=== PATIENT | male | born 1980 | race American Indian/Alaskan Native ===

== ENCOUNTER 2021-04-21 08:08 | Emergency (ER) | payer SELFPAY ==
--- NOTE | 2021-04-21 08:41 | Emergency Department Report ---
ED Abdominal Pain HPI - General Chief Complaint: Abdominal Pain Stated Complaint: CONSTIPATION, DEHYDRATION Time Seen by Provider: 04/21/21 08:21 Source: patient Mode of arrival: Ambulatory Limitations: No Limitations - History of Present Illness Initial Comments: 40 year old male presents to ED with c/o left sided abdominal pain and constipation. Patient states his symptoms started 3 days ago. He states he is not usually constipated. He typically has 1-2 BM per day. He states he took 1/2 bottle of mag citrate yesterday and also tried castor oil but only had very small amt of stool yesterday. He states that the last time he had a good bowel movement was 3 days ago. He states that with straining and a hard stool it has flared up his hemorrhoid and he did see a very small amount of bright red blood on the tissue when he wiped. He currently denies any rectal pain or swelling. He denies any associated nausea or vomiting or UTI symptoms. He denies any abdominal surgeries in the past. He denies any associated chest pain or shortness of breath. He denies any fever or chills. He states he use to drink 2-3 beers per day but he stopped drinking about 1 mth ago. He denies any other significant pmhx. MD Complaint: abdominal pain -: days(s) (3) - Related Data Previous Rx's Medication Instructions Recorded Last Taken Type HYDROcodone/APAP 5-325 [[place] 1 each PO Q6HR PRN #12 tablet 04/21/21 Unknown Rx 5/325] metFORMIN [Glucophage] 500 mg PO BID #60 tablet 04/21/21 Unknown Rx Allergies Allergy/AdvReac Type Severity Reaction Status Date / Time Sulfa (Sulfonamide Allergy Swelling Verified 04/21/21 09:16 Antibiotics) ED Review of Systems ROS: Stated complaint: CONSTIPATION, DEHYDRATION Other details as noted in HPI Comment: All other systems reviewed and negative Constitutional: denies: chills, fever Eyes: denies: eye pain, eye discharge, vision change ENT: denies: ear pain, throat pain Respiratory: denies: cough, shortness of breath, SOB with exertion, SOB at rest, wheezing Cardiovascular: denies: chest pain, palpitations, dyspnea on exertion, edema, syncope, paroxysmal nocturnal dyspnea Gastrointestinal: abdominal pain, constipation, hematochezia Genitourinary: denies: urgency, dysuria, frequency, hematuria, discharge, testicular pain, testicular mass Musculoskeletal: denies: back pain, joint swelling, arthralgia Skin: denies: rash, lesions, change in color, change in hair/nails, pruritus Neurological: denies: headache, weakness, numbness, paresthesias, confusion, abnormal gait, vertigo Psychiatric: denies: anxiety, depression, auditory hallucinations, visual hallucinations, homicidal thoughts, suicidal thoughts Hematological/Lymphatic: denies: easy bleeding, easy bruising, swollen glands ED Past Medical Hx - Past Medical History Previous Medical History?: No - Surgical History Past Surgical History?: No - Medications Home Medications: Home Medications Medication Instructions Recorded Confirmed Last Taken Type HYDROcodone/APAP 5-325 [[place] 1 each PO Q6HR PRN #12 tablet 04/21/21 Unknown Rx 5/325] metFORMIN [Glucophage] 500 mg PO BID #60 tablet 04/21/21 Unknown Rx ED Physical Exam - General Limitations: No Limitations General appearance: alert, in no apparent distress - Head Head exam: Present: atraumatic, normocephalic, normal inspection - Eye Eye exam: Present: normal appearance, PERRL, EOMI Pupils: Present: normal accommodation - ENT ENT exam: Present: normal exam, mucous membranes dry - Neck Neck exam: Present: normal inspection, full ROM - Respiratory Respiratory exam: Present: normal lung sounds bilaterally. Absent: respiratory distress, wheezes, rales - Cardiovascular Cardiovascular Exam: Present: regular rate, normal rhythm, normal heart sounds - GI/Abdominal GI/Abdominal exam: Present: soft, tenderness (Mild ttp LUQ without guarding or rebound.). Absent: distended, guarding, rebound, rigid - Neurological Exam Neurological exam: Present: alert, oriented X3, CN II-XII intact, normal gait - Psychiatric Psychiatric exam: Present: normal affect, normal mood - Skin Skin exam: Present: intact ED Course Vital Signs 04/21/21 04/21/21 08:13 12:45 Temperature 98.6 F 97.9 F Pulse Rate 111 H 87 Respiratory 18 18 Rate Blood Pressure 154/88 Blood Pressure 121/73 [Left] O2 Sat by Pulse 96 97 Oximetry ED Medical Decision Making - Lab Data Result diagrams: 04/21/21 09:08 04/21/21 09:08 - Radiology Data Radiology results: report reviewed Patient: CANDICE MOODY MR#: [id number] : 1980 Acct:[id number] Age/Sex: 40 / M ADM Date: 04/21/21 Loc: ED Attending Dr: Ordering Physician: CESIA ABRAHAM Date of Service: 04/21/21 Procedure(s): CT abdomen pelvis w con Accession Number(s): [id number] cc: CESIA ABRAHAM CT ABDOMEN AND PELVIS WITH CONTRAST INDICATION / CLINICAL INFORMATION: Left sided abd pain/constipation OMNI 300 80ML . TECHNIQUE: Axial CT images were obtained through the abdomen and pelvis after 80 cc IV contrast. Sagittal and coronal reformatted images. All CT scans at this location are performed using CT dose reduction for ALARA by means of automated exposure control. COMPARISON: None available. FINDINGS: LOWER CHEST: No significant abnormality. LIVER: Mild hepatic steatosis. No enlargement or focal lesion. GALLBLADDER: No significant abnormality. BILE DUCTS: No significant abnormality. PANCREAS: There is a small amount of unorganized fluid near the pancreatic tail and left anterior pararenal space. This probably represents pancreatitis. The pancreatic parenchyma is unremarkable on CT. No mass, pseudocyst or necrosis is identified. SPLEEN: No significant abnormality. ADRENALS: No significant abnormality. RIGHT KIDNEY and URETER: No significant abnormality. LEFT KIDNEY and URETER: No significant abnormality. STOMACH and SMALL BOWEL: No significant abnormality. COLON: No significant abnormality. APPENDIX: No significant abnormality. PERITONEUM: No free fluid. No free air. No fluid collection. LYMPH NODES: No significant adenopathy. AORTA and ARTERIES: No significant abnormality. IVC and VEINS: No significant abnormality. URINARY BLADDER: No significant abnormality. REPRODUCTIVE ORGANS: No significant abnormality. ADDITIONAL FINDINGS: None. SKELETAL SYSTEM: Mild degenerative disc disease at L4-5. IMPRESSION: Findings suggestive of acute interstitial pancreatitis as described. Mild hepatic steatosis. Signer Name: Samy Angeles Jr, MD Signed: 04/21/2021 11:40 AM Workstation Name: [id number] Transcribed By: TTR Dictated By: SAMY ANGELES JR, MD Electronically Authenticated By: SAMY ANGELES JR, MD Signed Date/Time: 04/21/21 1140 DD/ 1136 TD/TT: - Medical Decision Making 1300: Labs/imaging reviewed -- Work-up today shows that patient new onset diabetic with an initial blood glucose of 635. No evidence of DKA. His blood sugar decreased to 298 after 3 L of IV fluid and 50 L of IV insulin. CT abdomen pelvis shows interstitial pancreatitis but lipase and LFTs were normal. Patient also reports history of daily alcohol use with 2-3 beers per day but he states that he stopped drinking about a month ago. He denies any past history of pancreatitis. Pancreatic changes on CT scan could be chronic. Discussed case with Dr Short -recommend that patient can be discharged as long as his pain is under control. Patient resting comfortably in the room, playing on his phone. He denies any pain currently after IV morphine. Repeat abdominal exam shows a soft nontender abdomen. He is not toxic or ill-appearing. He is neurologically intact. Given patient is pain-free with a repeat benign abdominal exam, and stable repeat vital signs, he will discharged home. Discussed lab results and CT results with patient. He understands his diagnosis of new onset diabetes and that he will need to start Metformin and take it daily until he follows up with the primary care doctor which he needs to do this week. Also informed him about the interstitial pancreatitis seen on CT and that he will also need to f/u closely with [facility] for continued monitoring and/or referral to GI. Patient also instructed that he needs to continue avoiding alcohol. Patient expressed understanding of instructions and agreed with plan. Pt was stable at time of d/c. Critical care attestation.: If time is entered above; I have spent that time in minutes in the direct care of this critically ill patient, excluding procedure time. ED Disposition Clinical Impression: New onset type 2 diabetes mellitus, Interstitial pancreatitis Disposition: DC- TO HOME OR SELFCARE Is pt being admited?: No Does the pt Need Aspirin: No Condition: Stable Instructions: Type 2 Diabetes Mellitus, Diagnosis, Adult, Acute Pancreatitis, [id number], Chronic Pancreatitis, Pancreatitis Eating Plan, Clear Liquid Diet, Adult, [id number], Blood Glucose Monitoring, Adult, Diabetes Mellitus Type 2 in Adults (ED) Additional Instructions: I recommend that you start taking the Metformin twice a day as prescribed. Take the hydrocodone as needed for pain. I recommend that you follow a clear diet instruction plan for the next 12 to 24 hours. It is important that you follow closely with the primary care doctor listed on your discharge instructions for continued monitoring and control of your diabetes. You can get a glucometer from [id number] and start checking your blood sugar before breakfast and at night. Keep a record of your blood sugar readings for follow-up with your primary care doctor. Return to the ER if your symptoms changes or worsens in any way. Prescriptions: metFORMIN [Glucophage] 500 mg PO BID #60 tablet HYDROcodone/APAP 5-325 [[place] 5/325] 1 each PO Q6HR PRN #12 tablet PRN Reason: Pain Referrals: SUSANNA HUFFMAN MD [Staff Physician] - 3-5 Days [facility] [place] [Provider Group] - 3-5 Days SUZANNA SULLIVAN MD [Staff Physician] - 3-5 Days Time of Disposition: 12:57
[2021-04-21] MEDS ORDERED: SODIUM CHLORIDE 0.9% 1000 ML 1,000 ML IV ONE ×3 (08:46→11:09)
[2021-04-21] MEDS ORDERED: ONDANSETRON 4 MG/2 ML INJ IV ONE (08:52)
[2021-04-21] MEDS ORDERED: MORPHINE 4 MG/1 ML INJ IV ONE (08:52)
[2021-04-21 09:13] LABS: Bilirubin,Urine NEG (Negative); Blood,Urine SM (Negative); Color,Urine Colorless (Yellow); Mucus,Urine FEW /HPF; Protein,Urine <15 mg/dL mg/dL (Negative); Urobilinogen,Urine < 2.0 mg/dL (<2.0)
[2021-04-21 09:38] LABS: Basophils # (Auto) 0.2 K/mm3 (0.0-0.1); Basophils % (Auto) 1.1 % (0.0-1.8); Eosinophils % (Auto) 0.3 % (0.0-4.3); Hematocrit 46.4 % (35.5-45.6); Hemoglobin 16.1 gm/dl (11.8-15.2); Lymphocytes # (Auto) 2.4 K/mm3 (1.2-5.4); Lymphocytes % (Auto) 16.1 % (13.4-35.0); Mean Corpuscular HGB Conc 35 % (32-34); Mean Corpuscular Volume 93 fl (84-94); Monocytes # (Auto) 0.9 K/mm3 (0.0-0.8); Monocytes % (Auto) 5.7 % (0.0-7.3); Platelet Count 228 K/mm3 (140-440); Red Blood Count 4.99 M/mm3 (3.65-5.03); Red Cell Distribution Width 13.6 % (13.2-15.2)
[2021-04-21 09:52] LABS: Albumin 3.7 g/dL (3.9-5); BUN/Creatinine Ratio 16; Blood Urea Nitrogen 13 mg/dL (9-20); Calcium 9.7 mg/dL (8.4-10.2); Hemolysis Index 61
[2021-04-21 09:53] LABS: Bilirubin,Direct < 0.2 mg/dL (0-0.2)
[2021-04-21] MEDS ORDERED: INSULIN REGULAR, HUMAN 100 UNITS/1 ML IV ONE ×2 (09:56→11:09)
[2021-04-21 10:27] LABS: Alanine Aminotransferase 5 units/L (7-56)
--- NOTE | 2021-04-21 11:45 | Cat Scan Report ---
CT ABDOMEN AND PELVIS WITH CONTRAST INDICATION / CLINICAL INFORMATION: Left sided abd pain/constipation OMNI 300 80ML . TECHNIQUE: Axial CT images were obtained through the abdomen and pelvis after 80 cc IV contrast. Sagittal and co elba reformatted images. All CT scans at this location are performed using CT dose reduction for ALA RA by means of automated exposure control. COMPARISON: None available. FINDINGS: LOWER CHEST: No significant abnormality. LIVER: Mild hepatic steatosis. No enlargement or focal lesion. GALLBLADDER: No significant abnormality. BILE DUCTS: No significant abnormality. PANCREAS: There is a small amount of unorganized fluid near the pancreatic tail and left anterior par arenal space. This probably represents pancreatitis. The pancreatic parenchyma is unremarkable on CT. No mass, pseudocyst or necrosis is identified. SPLEEN: No significant abnormality. ADRENALS: No significant abnormality. RIGHT KIDNEY and URETER: No significant abnormality. LEFT KIDNEY and URETER: No significant abnormality. STOMACH and SMALL BOWEL: No significant abnormality. COLON: No significant abnormality. APPENDIX: No significant abnormality. PERITONEUM: No free fluid. No free air. No fluid collection. LYMPH NODES: No significant adenopathy. AORTA and ARTERIES: No significant abnormality. IVC and VEINS: No significant abnormality. URINARY BLADDER: No significant abnormality. REPRODUCTIVE ORGANS: No significant abnormality. ADDITIONAL FINDINGS: None. SKELETAL SYSTEM: Mild degenerative disc disease at L4-5. IMPRESSION: Findings suggestive of acute interstitial pancreatitis as described. Mild hepatic steatosis. Signer Name: Samy Angeles Jr, MD Signed: 04/21/2021 11:40 AM Workstation Name: [id number]
[2021-04-21 12:47] VITALS: BP 121/73
== END 2021-04-21 13:11 | disposition home or self-care (01) ==
LOC: ED 08:08
DX: K86.1 Other chronic pancreatitis (principal); E11.9 Type 2 diabetes mellitus without complications; K59.00 Constipation, unspecified; Z88.2 Allergy status to sulfonamides; Z79.899 Other long term (current) drug therapy
CPT/HCPCS: 36415; 74177; 80048; 80076; 81001; 82962; 83690; 85025; 96361; 96374; 96375; 96376; 99284; J2270; J2405; J7030; Q9967; J1815

== ENCOUNTER 2021-11-15 22:26 | Emergency (ER) | payer SELFPAY | END 2021-11-16 18:37 | disposition left against medical advice (07) | LOC: ED 22:26 | DX: R73.9 Hyperglycemia, unspecified (principal); Z53.21 Procedure and treatment not carried out due to patient leaving prior to being seen by health care provider ==